=== PATIENT | male | born 1985 | race Two or more races ===

== ENCOUNTER 2016-11-03 14:16 | Inpatient (IN) | payer OTHER ==
[~2016-11-03] VITALS: Ht 185.4 cm; Wt 74.8 kg
[2016-11-03 14:40] LABS: HEMATOCRIT 44.9 % (38.0-50.0); MCH 25.7 PG (29.0-34.0); MCHC 33.4 G/DL (30.0-36.0); RBC DIS.WIDTH-CV 12.4 % (11.8-14.6); RED BLOOD COUNT 5.83 M/uL (4.00-5.50); WHITE BLOOD COUNT 11.1 K/uL (4.1-10.2)
[2016-11-03 14:53] LABS: CHLORIDE 104 mEq/L (99-109); SODIUM 139 mEq/L (136-147)
[2016-11-03 14:55] LABS: GLUCOSE 107 mg/dL (70-99)
[2016-11-03 14:56] LABS: ANION GAP 14 MEQ/L (2-14)
[2016-11-03 14:57] LABS: TOTAL BILIRUBIN 0.5 mg/dL (0.0-1.0)
[2016-11-03 14:59] LABS: ALKALINE PHOSPHATASE 85 IU/L (3-129)
[2016-11-03 15:00] LABS: UREA NITROGEN (BUN) 16 mg/dL (9-23)
[2016-11-03 15:01] LABS: GFR ESTIMATE (CALCULATED) > 59 mL/min/
[2016-11-03 15:49] LABS: LIPASE 157 U/L (1.0-51.0)
[2016-11-03 16:01] LABS: MEAN PLAT.VOLUME 11.8 uM^3 (9.0-12.4); PLAT.SUFFICIENCY ADEQUATE; PLATELET COUNT 222 K/uL (156-360)
[2016-11-03 17:31] LABS: ADD MIUA? YES; BILIRUBIN NEGATIVE; BLOOD NEGATIVE; COLOR YELLOW ((YELLOW)); GLUCOSE (STRIP) NEGATIVE; KETONES NEGATIVE; LEUKOCYTES NEGATIVE; NITRITE NEGATIVE; PROTEIN (STRIP) NEGATIVE; UROBILINOGEN 0.2 MG/DL (0.2-1.0)
[2016-11-03 17:36] LABS: BACTERIA RARE /HPF; EPITHELIAL CELLS NONE SEEN /HPF; MUCUS TRACE /LPF; RED BLOOD CELLS 0-5 /HPF (0-5); UCUL ADDED? NO; WHITE BLOOD CELLS 0-5 /HPF (0-5)
[2016-11-03 17:54] LABS: SPECIFIC GRAVITY 1.066 (1.000-1.030)
[2016-11-03] MEDS ORDERED: ADVIL200 MG PO (19:09)
[2016-11-03 19:40] LABS: HDL CHOLESTEROL 44 MG/DL (Desirable>=40); LDL CHOLESTEROL 84 mg/dL (Desirable<100); NON-HDL CHOLESTEROL 97 mg/dL (Desirable<160); TOTAL CHOLESTEROL 141 mg/dL (Desirable<200); TRIGLYCERIDES 63 MG/DL (Normal: <150)
[2016-11-03 21:31] VITALS: BP 104/60
[2016-11-03 22:37] LABS: POINT-OF-CARE METER ID UU13113717
[2016-11-03 23:24] VITALS: BP 89/41
[2016-11-04 00:51] VITALS: BP 101/69
[2016-11-04 07:20] LABS: ALKALINE PHOSPHATASE 57 IU/L (3-129); ANION GAP 6 MEQ/L (2-14); CHLORIDE 112 MEQ/L (99-109); GFR ESTIMATE (CALCULATED) > 59 mL/min/; GLUCOSE 90 mg/dL (70-99); POTASSIUM 4.3 MEQ/L (3.7-5.4); SAMPLE HEMOLYSIS CHECK 0; SAMPLE ICTERIC CHECK 0; SAMPLE LIPEMIA CHECK 0; SODIUM 142 MEQ/L (136-147); TOTAL BILIRUBIN 0.4 MG/DL (0.0-1.0); UREA NITROGEN (BUN) 12 mg/dL (9-23)
[2016-11-04 07:29] LABS: HEMATOCRIT 36.5 % (38.0-50.0); MCH 26.4 PG (29.0-34.0); MCHC 33.2 G/DL (30.0-36.0); MCV 79.7 FL (86-99); RBC DIS.WIDTH-CV 12.7 % (11.8-14.6); RBC DIS.WIDTH-SD 36.2 % (39-53); WHITE BLOOD COUNT 7.4 K/uL (4.1-10.2)
[2016-11-04 07:32] LABS: MEAN PLAT.VOLUME 11.9 uM^3 (9.0-12.4); PLAT.SUFFICIENCY ADEQUATE; PLATELET COUNT 164 K/uL (156-360)
[2016-11-04 07:33] LABS: RED BLOOD COUNT 4.58 M/uL (4.00-5.50)
[2016-11-04 07:35] VITALS: BP 101/53
[2016-11-04 15:48] VITALS: BP 117/56
[2016-11-04 23:52] VITALS: BP 112/65
[2016-11-05 07:04] LABS: ALKALINE PHOSPHATASE 53 IU/L (3-129); ANION GAP 4 MEQ/L (2-14); CHLORIDE 108 MEQ/L (99-109); DIRECT BILIRUBIN 0.1 mg/dL (0.0-0.3); GFR ESTIMATE (CALCULATED) > 59 mL/min/; GLUCOSE 95 mg/dL (70-99); IRON 54 MCG/DL (35-150); LIPASE 61 U/L (1.0-51.0); POTASSIUM 4.3 MEQ/L (3.7-5.4); SAMPLE HEMOLYSIS CHECK 0; SAMPLE ICTERIC CHECK 0; SAMPLE LIPEMIA CHECK 0; SODIUM 141 MEQ/L (136-147); UREA NITROGEN (BUN) 8 mg/dL (9-23)
[2016-11-05 07:05] LABS: TOTAL BILIRUBIN 0.3 MG/DL (0.0-1.0)
[2016-11-05 08:06] LABS: FERRITIN 129 NG/ML (22-322)
[2016-11-05 08:45] VITALS: BP 110/58
[2016-11-05 13:47] VITALS: BP 115/57
[2016-11-05 23:47] VITALS: BP 118/58
[2016-11-06 07:56] VITALS: BP 113/65
[2016-11-06 23:32] VITALS: BP 103/54
[2016-11-07 08:32] VITALS: BP 107/55
[2016-11-07] MEDS ORDERED: PROTONIX40 MG PO (10:36)
[2016-11-07] MEDS ORDERED: HYDROCODON-ACE1 EAC7 PO (10:36)
[2016-11-07] MEDS ORDERED: ZOFRAN4 MG PO (10:36)
== END 2016-11-07 12:17 | disposition home or self-care (01) | DRG 392 ==
LOC: EME 14:16 → EDOF 18:02 → 5SOUTH 18:02 → ENRESERV 18:04 → 5SOUTH 21:10
PROVIDERS: Internal Medicine; Nurse Practitioner Adult Health
PROC: 0DJ08ZZ Inspection of Upper Intestinal Tract, Via Natural or Artificial Opening Endoscopic (ICD-10-PCS; principal; 2016-11-05)
DX: R10.13 Epigastric pain (principal); I77.4 Celiac artery compression syndrome; G40.909 Epilepsy, unspecified, not intractable, without status epilepticus; D50.9 Iron deficiency anemia, unspecified; G89.29 Other chronic pain; F17.200 Nicotine dependence, unspecified, uncomplicated; Z82.49 Family history of ischemic heart disease and other diseases of the circulatory system
CPT/HCPCS: 74177; 80048; 80053; 80061; 80076; 81003; 82272; 82607; 82728; 82746; 82948; 83540; 83690; 83921 90; 84466; 85027; 93005; 95819; 99281; 99285; C9113; J1630; J1644; J2250; J2270; J2405; J3010; J7030; J7040; S0028

== ENCOUNTER 2016-11-16 03:42 | Emergency (ER) | payer OTHER ==
[~2016-11-16] VITALS: Ht 185.4 cm; Wt 75.0 kg
[~2016-11-16 03:42] MED LIST: ADVIL200 MG PO; HYDROCODON-ACE1 EAC7 PO; PROTONIX40 MG PO; ZOFRAN4 MG PO
[2016-11-16 04:33] LABS: INFLUENZA A VIRAL ANTIGEN NEGATIVE; INFLUENZA B VIRAL ANTIGEN NEGATIVE
[2016-11-16 04:39] LABS: MCH 25.6 PG (29.0-34.0); MCHC 32.5 G/DL (30.0-36.0); MCV 78.9 FL (86-99); RBC DIS.WIDTH-CV 13.1 % (11.8-14.6); RBC DIS.WIDTH-SD 37.3 % (39-53); RED BLOOD COUNT 5.07 M/uL (4.00-5.50); WHITE BLOOD COUNT 14.2 K/uL (4.1-10.2)
[2016-11-16 04:49] LABS: CHLORIDE 103 mEq/L (99-109); POTASSIUM 4.1 mEq/L (3.7-5.4); SODIUM 135 mEq/L (136-147)
[2016-11-16 04:50] LABS: GLUCOSE 119 mg/dL (70-99)
[2016-11-16 04:52] LABS: ANION GAP 10 MEQ/L (2-14)
[2016-11-16 04:54] LABS: GFR ESTIMATE (CALCULATED) > 59 mL/min/
[2016-11-16 04:55] LABS: UREA NITROGEN (BUN) 12 mg/dL (9-23)
[2016-11-16] MEDS ORDERED: MOTRIN800 MG PO (05:00)
[2016-11-16] MEDS ORDERED: ZOFRAN ODT4 MG PO (05:00)
[2016-11-16 05:07] VITALS: BP 114/57
[2016-11-16 05:30] LABS: MEAN PLAT.VOLUME 12.2 uM^3 (9.0-12.4); PLAT.SUFFICIENCY ADEQUATE; PLATELET COUNT 165 K/uL (156-360)
== END 2016-11-16 05:13 | disposition home or self-care (01) ==
LOC: EME 03:42
PROVIDERS: Nurse Practitioner Family
DX: B34.9 Viral infection, unspecified (principal); K21.9 Gastro-esophageal reflux disease without esophagitis; F41.9 Anxiety disorder, unspecified; F17.200 Nicotine dependence, unspecified, uncomplicated
CPT/HCPCS: 71020; 80048; 85027; 87502; 87651 90; 99281; 99284; J1885